=== PATIENT | female | born 2000 | race Caucasian/White ===

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

== ENCOUNTER 2021-09-17 17:14 | Emergency (ER) | payer OTHER, SELFPAY ==
[2021-09-17 17:20] VITALS: BP 144/106; PULSE 128; RESP 20; TEMP 36.3; O2SAT 100
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
[2021-09-17 17:51] VITALS: BP 122/78; PULSE 105; RESP 20; TEMP 36.6; O2SAT 99
== END 2021-09-17 17:52 | disposition home or self-care (01) ==
PROVIDERS: Emergency Provider Emergency Medicine; PCP Family Medicine
DX: K02.9 Dental caries, unspecified (principal); K04.7 Periapical abscess without sinus; H60.501 Unspecified acute noninfective otitis externa, right ear
CPT/HCPCS: 99283

== ENCOUNTER 2022-02-04 13:21 | Emergency (ER) | payer OTHER, SELFPAY ==
[2022-02-04 13:37] VITALS: BP 133/96; PULSE 115; RESP 20; TEMP 36.6; O2SAT 99
--- NOTE | 2022-02-04 13:41 | ED.SKABFB ---
HPI - Skin/Abscess/Foreign Bdy General Chief complaint: Skin/Abscess/Foreign Body Stated complaint: Right Ankle pain Source: patient Mode of arrival: ambulatory Limitations: no limitations History of Present Illness HPI narrative: this is a 21-year-old female that has a history of MRSA early easy having lesions in her lower extremities mainly the right lower extremity with an area of erythema with no drainage no fever chills. complaint: rash Onset (ago): day(s) Related Data Allergies Allergy/AdvReac Type Severity Reaction Status Date / Time poison jeffrey extract Allergy Severe Rash Verified 02/04/22 13:36 venom-honey bee Allergy Unknown Unknown Verified 02/04/22 13:36 Review of Systems Review of Systems: All systems reviewed & are unremarkable except as noted in HPI and below PMFSH Past Medical History Medical History Patient denies medical problems Exam Const: General: healthy appearing Nutritional Appearance: well nourished HENMT: Head: normal to inspection Face and sinus: normal facial exam Mouth: Yes Normal oral and palatal mucosa present Eyes: Conjunctivae: conjunctivae normal Neck: Neck: normal visual inspection, no lymphadenopathy and no meningeal signs Chest: Chest palpation & inspection: normal inspection of the chest Resp: Effort & Inspection: normal respiratory effort Auscultation: clear to auscultation bilaterally Cardio: Rate: regular rate Rhythm: regular rhythm GI: Auscultation: normal bowel sounds Skin: Wounds: wounds noted Other: Lower extremities with an area erythema Neuro: General: patient oriented x3 and moves all extremities Extrem: General: normal to inspection Course Course Emergency Course: will send antibiotics to patient's pharmacy. Vital Signs Vital signs: Vital Signs Temperature 36.6 C 02/04/22 13:37 Pulse Rate 115 H 02/04/22 13:37 Respiratory Rate 02/04/22 13:37 Blood Pressure 133/96 H 02/04/22 13:37 Pulse Oximetry 99 02/04/22 13:37 Oxygen Delivery Room Air 02/04/22 13:37 Temperature 36.6 C 02/04/22 13:37 Pulse Rate 115 H 02/04/22 13:37 Respiratory Rate 20 02/04/22 13:37 Blood Pressure 133/96 H 02/04/22 13:37 Pulse Oximetry 99 02/04/22 13:37 Oxygen Delivery Room Air 02/04/22 13:37 Critical Care Time Critical Care Time Critical Care Time: No Discharge Plan Discharge Clinical Impression: Abscess of skin or subcutaneous tissue Qualifiers: Site of cutaneous abscess: extremity Site of cutaneous abscess of extremity: lower extremity Laterality: right Qualified Code(s): L02.415 - Cutaneous abscess of right lower limb Cellulitis Qualifiers: Site of cellulitis: extremity Site of cellulitis of extremity: lower extremity Laterality: right Qualified Code(s): L03.115 - Cellulitis of right lower limb Patient Disposition: Home, Self-Care Condition: Stable Instructions: Antibiotic Form, Cellulitis (ED) Additional Instructions: Take medicine as prescribed and follow-up primary care physician if symptoms persist or worsen. Prescriptions: New amoxicillin-pot clavulanate [Augmentin] 500-125 mg tablet 1 tablet PO TID 10 Days Qty: 30 0RF mupirocin 2 % ointment 1 applic topical TID 7 Days Qty: 15 0RF Follow-up/Referrals: Tommy,Susan Sullivan MD [Primary Care Provider] - Time of Disposition: 13:46
== END 2022-02-04 13:52 | disposition home or self-care (01) ==
PROVIDERS: Emergency Provider Emergency Medicine; PCP Family Medicine
DX: L02.415 Cutaneous abscess of right lower limb (principal); L03.115 Cellulitis of right lower limb
CPT/HCPCS: 99283

== ENCOUNTER 2022-02-19 09:49 | Outpatient (CLI) | payer OTHER, SELFPAY ==
[2022-02-19 10:37] LABS: SPREG INTERNAL CONTROL Positive; Serum Qual hCG Negative
== END 2022-02-19 09:50 | disposition home or self-care (01) ==
LOC: CHSLAB 09:51
PROVIDERS: PCP Nurse Practitioner Family; Visit Provider Nurse Practitioner Family
DX: Z30.9 Encounter for contraceptive management, unspecified (principal)
CPT/HCPCS: 36415; 84703

== ENCOUNTER 2022-03-08 15:43 | Outpatient (NON) | payer OTHER, SELFPAY ==
[2022-03-08 16:21] LABS: Add Urine Microscopic? YES; Appearance Urine Cloudy (Clear); Bilirubin Urine Negative (Negative); Blood Urine Negative (Negative); Color Urine Light Yellow (Yellow); Glucose Urine UA Negative (Negative); Ketones Urine Negative (Negative); Leukocyte Esterase Ur 1+ LEU/UL (Negative); Nitrate Urine Positive (Negative); Protein Urine Negative (Negative); Specific Grav Ur >= 1.030 (1.010-1.020); Urobilinogen Urine 0.2 mg/dL (0.2-1.0)
[2022-03-08 16:33] LABS: Bacteria Urine 2+ /hpf; RBC Urine None seen /hpf (0-2); Squamous Epithelial Cell Urine Few /hpf (Few); WBC Urine 16-20 /hpf (0-3)
== END 2022-03-08 15:44 | disposition home or self-care (01) ==
LOC: CHSLAB 15:44
PROVIDERS: Visit Provider Nurse Practitioner Family
DX: R39.9 Unspecified symptoms and signs involving the genitourinary system (principal); Z72.51 High risk heterosexual behavior
CPT/HCPCS: 81001; 87077; 87086; 87088; 87186; 87491; 87591; 87661

== ENCOUNTER 2022-04-26 23:18 | Emergency (ER) | payer OTHER, SELFPAY ==
[2022-04-26 23:22] VITALS: TEMP 35.9
--- NOTE | 2022-04-26 23:25 | PC.NURSE ---
During initial nursing assessment pt states, I think i am just going to call my doctor in the morning. I don't need to be seen. This staff member reassured the pt that we can assess her. pt stated, I will just call my doctor. this staff member informed the patient to seek medical attention if she feel worse or if the light headiness get worse or does not go away. pt stated, I will. i am sure my doctor can see me quickly when I call in the morning. I don't was to take up a lot of time. I don't want to leave my car outside plus my car is having problems. I am just going to leave. pt left before this staff member was able to obtain vital signs. Pt denies suicidal thoughts. this staff member was able to complete a partial verbal assessment and was charted. pt left before being seen by ER physician.
== END 2022-04-26 23:41 | disposition left against medical advice (07) ==
PROVIDERS: Emergency Provider Emergency Medicine; PCP Nurse Practitioner Family
DX: R42 Dizziness and giddiness (principal)
CPT/HCPCS: 99199

== ENCOUNTER 2022-06-01 14:54 | Emergency (ER) | payer OTHER, SELFPAY ==
[2022-06-01 15:00] VITALS: BP 126/91; PULSE 120; RESP 20; TEMP 36.9; O2SAT 100
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
== END 2022-06-01 15:15 | disposition left against medical advice (07) ==
LOC: CHSED 15:48
PROVIDERS: Emergency Provider Emergency Medicine; PCP Family Medicine
DX: M54.2 Cervicalgia (principal); Y04.0XXA Assault by unarmed brawl or fight, initial encounter
CPT/HCPCS: 99281

== ENCOUNTER 2022-10-04 14:58 | Outpatient (NON) | payer OTHER, SELFPAY | END 2022-10-04 14:59 | disposition home or self-care (01) | PROVIDERS: PCP Nurse Practitioner Family; Visit Provider Nurse Practitioner Family | DX: L02.512 Cutaneous abscess of left hand (principal) | CPT/HCPCS: 87070; 87147; 87186; 87205 ==

== ENCOUNTER 2022-11-21 17:42 | Emergency (ER) | payer OTHER, SELFPAY ==
[2022-11-21 17:42] VITALS: BP 122/81; PULSE 86; RESP 16; O2SAT 100
[2022-11-21 17:53] LABS: Glucose Point of Care 105 mg/dl (65-105)
--- NOTE | 2022-11-21 17:59 | ED.GENADULT ---
HPI - General Adult General Chief complaint: Unspecified Stated complaint: episodes of nausea and dizziness Time Seen by Provider: 11/21/22 17:59 History of Present Illness HPI narrative: The patient is a 22-year-old woman with history of anxiety, depression, bipolar affective disorder. She smokes cigarettes and uses marijuana occasionally. She has a LINK card for food. [facility]. She has had a 2 day history of dizziness and feeling lightheaded. She has no nausea. She has not had any food today and does not want food to eat here in the ED. She does not want any water or soda to drink now. She wants no bloodwork to be done. She wants no IV's and no IV fluids. It is unclear what she really wants. She is not suicidal or homicidal. No delusions or hallucinations. She feels a bit better today in terms of the dizziness. She does not want to see a mental health social worker or medical case manager. She desires to be here the least amount of time in the ED. Related Data Allergies Allergy/AdvReac Type Severity Reaction Status Date / Time poison jeffrey extract Allergy Severe Rash Verified 11/21/22 17:51 venom-honey bee Allergy Unknown Unknown Verified 11/21/22 17:51 Review of Systems Review of Systems: All systems reviewed & are unremarkable except as noted in HPI and below Constitutional: Constitutional: Denies chills, Denies excessive sweating, Denies fatigue, Denies fever(s), Denies headache(s) and Denies weakness Eyes: Eyes: Denies change in vision and Denies photophobia ENT: Denies dysphagia, Reports dizziness, Denies headache(s), Denies lip swelling, Denies nasal congestion, Denies sore throat and Denies tongue swelling Cardiovascular: Cardiovascular: Denies chest pain, Denies syncope, Denies rapid heart rate and Denies dyspnea Respiratory: Respiratory: Denies cough, Denies dyspnea and Denies wheezing Gastrointestinal: Gastrointestinal: Denies abdominal pain, Denies constipation, Denies dysphagia, Denies diarrhea, Denies nausea and Denies vomiting Genitourinary: Genitourinary: Denies hematuria, Denies urinary frequency, Denies dysuria and Denies urinary urgency Musculoskeletal: Musculoskeletal: Denies back pain, Denies myalgias, Denies arthralgias, Denies joint swelling and Denies numbness Integumentary/Breasts: Skin/Breast: Denies pruritus, Denies erythema and Denies rash Neurologic: Denies confusion, Denies dizziness, Denies syncope, Denies headache(s), Denies focal weakness, Denies numbness and Denies weakness Psychiatric: Psychiatric: Denies anxiety and Denies confusion Endocrine: Endocrine: Denies excessive sweating and Denies fatigue Hematologic/Lymphatic: Hematologic/Lymphatic: Denies easy bleeding and Denies easy bruising Allergic/Immunologic: Allergic/Immunologic: Denies lip swelling, Denies tongue swelling and Denies wheezing PMFSH Past Medical History Medical History MRSA (methicillin resistant staph aureus) culture positive Patient denies medical problems Scoliosis deformity of spine Surgical History Surgical History H/O oral surgery History of placement of ear tubes History of tonsillectomy Social History Social History Years smoked: 2 Smoking status: Current every day smoker Alcohol intake: never Substance use: never Substance use type: does not use Living arrangements: alone Exam Const: General: healthy appearing, no acute distress, alert and well nourished; No confusion Nutritional Appearance: well nourished Orientation/consciousness: patient oriented x3 and No confusion Limitations: no limitations HENMT: Head: normal to inspection Ears: external ears normal Face/Nose/Sinus: normal facial exam Face and sinus: normal facial exam Mouth: Yes moist mucous membranes Throat: posterior oropharynx normal Eyes: Conjunctiv
== END 2022-11-21 18:20 | disposition home or self-care (01) ==
PROVIDERS: Emergency Medicine; Emergency Provider Emergency Medicine; PCP Nurse Practitioner Family
DX: R42 Dizziness and giddiness (principal); F31.9 Bipolar disorder, unspecified; F17.210 Nicotine dependence, cigarettes, uncomplicated
CPT/HCPCS: 82948; 99282

== ENCOUNTER 2022-12-03 19:06 | Emergency (ER) | payer OTHER, SELFPAY ==
[2022-12-03 19:08] VITALS: BP 98/65; PULSE 97; RESP 18; TEMP 37; O2SAT 99
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
--- NOTE | 2022-12-03 19:25 | PC.NURSE ---
After Dr. Austin finished in pt room, pt and visitor abruptly walked out of the department to the exit. Pt appeared agitated and was walking hastily towards to exit. Pt did not say anything to staff during her exit. 12/03/22 @1916
== END 2022-12-03 19:16 | disposition left against medical advice (07) ==
PROVIDERS: Emergency Provider Emergency Medicine; PCP Nurse Practitioner Family
DX: H92.01 Otalgia, right ear (principal); F17.210 Nicotine dependence, cigarettes, uncomplicated; Y09 Assault by unspecified means
CPT/HCPCS: 99281

== ENCOUNTER 2023-05-11 11:45 | Outpatient (NON) | payer OTHER, SELFPAY | END 2023-05-11 11:46 | disposition home or self-care (01) | LOC: CHSLAB 11:47 | PROVIDERS: Visit Provider Nurse Practitioner Family | DX: L28.2 Other prurigo (principal) | CPT/HCPCS: 87070; 87075; 87205 ==

== ENCOUNTER 2023-07-06 23:08 | Emergency (ER) | payer OTHER, SELFPAY ==
--- NOTE | 2023-07-06 23:13 | ED.ABDPAIN ---
HPI - Abdominal Pain General Chief Complaint: Abdominal Pain Stated Complaint: sob, abdominal cramping Source: patient Mode of arrival: ambulatory Limitations: no limitations History of Present Illness HPI narrative: 23-year-old female with no significant past medical history who is currently homeless presents to the ER with a 1 hour history of -- anxiety -- shortness of breath. No cough or sputum production. -- abdominal cramps. No fever or chills. No nausea/ vomiting. Patient is on contraceptive injectable which is up-to-date. No history of drug abuse. MD elicited complaint: abdominal pain Pertinent past history: constipation Onset (ago): hour(s) ( 1 hour) Pain Consistency: intermittent Location: diffuse Severity: mild Quality: aching Radiation: none Migration to: no migration Exacerbating factors: nothing Relieving factors: nothing Related Data Allergies Allergy/AdvReac Type Severity Reaction Status Date / Time poison jeffrey extract Allergy Severe Rash Verified 05/12/23 10:57 Review of Systems Review of Systems: All systems reviewed & are unremarkable except as noted in HPI and below Constitutional: Constitutional: Reports as per HPI and Reports no additional constitutional complaints Eyes: Eyes: Reports as per HPI and Reports no additional eye complaints ENT: Reports system reviewed and no additional complaints, except as documented and Reports as per HPI Cardiovascular: Cardiovascular: Reports as per HPI and Reports no additional cardiovascular complaints Respiratory: Respiratory: Reports as per HPI, Reports no additional respiratory complaints and Reports dyspnea Gastrointestinal: Gastrointestinal: Reports as per HPI and Reports no additional gastrointestinal complaints Genitourinary: Genitourinary: Reports no additional female genitourinary complaints Musculoskeletal: Musculoskeletal: Reports no additional musculoskeletal complaints and Reports as per HPI Integumentary/Breasts: Skin/Breast: Reports system reviewed and no additional complaints, except as docu and Reports as per HPI Neurologic: Reports system reviewed and no additional complaints, except as documented and Reports as per HPI Psychiatric: Psychiatric: Reports no additional psychiatric complaints and Reports as per HPI Endocrine: Endocrine: Reports no additional endocrine complaints and Reports as per HPI Hematologic/Lymphatic: Hematologic/Lymphatic: Reports no additional hematologic/lymphatic complaints and Reports as per HPI Allergic/Immunologic: Allergic/Immunologic: Reports no additional allergic/immunologic complaints and Reports as per HPI [facility] Past Medical History Medical History MRSA (methicillin resistant staph aureus) culture positive Patient denies medical problems Scoliosis deformity of spine Surgical History Surgical History H/O oral surgery History of placement of ear tubes History of tonsillectomy Social History Social History Years smoked: 2 Smoking status: Current every day smoker Alcohol intake: never Substance use: never Substance use type: does not use Living arrangements: alone Exam Narrative: patient is hemodynamically stable. Initial tachycardia has resolved. Const: General: healthy appearing and no acute distress Orientation/consciousness: patient oriented x3 Limitations: no limitations HENMT: Head: normal to inspection Ears: external ears normal Face/Nose/Sinus: Normal external nose present Face and sinus: normal facial exam Mouth: Yes Normal oral and palatal mucosa present Throat: posterior oropharynx normal Eyes: Conjunctivae: conjunctivae normal Pupils: Equal, round and reactive pupils present EOM: EOMs intact bilaterally Direct Ophthalmoscopy: no photophobia Neck: Neck: normal visual inspection, no
[2023-07-06 23:16] VITALS: BP 119/75; PULSE 108; RESP 18; TEMP 36.8; O2SAT 100
== END 2023-07-06 23:55 | disposition home or self-care (01) ==
LOC: CHSED 23:44
PROVIDERS: Emergency Provider Internal Medicine Critical Care Medicine; PCP Nurse Practitioner Family
DX: F41.9 Anxiety disorder, unspecified (principal); F17.210 Nicotine dependence, cigarettes, uncomplicated
CPT/HCPCS: 99281

== ENCOUNTER 2023-11-25 19:09 | Emergency (ER) | payer OTHER, SELFPAY ==
[2023-11-25 19:17] VITALS: BP 123/92; PULSE 110; RESP 18; TEMP 36.8; O2SAT 100
--- NOTE | 2023-11-25 19:51 | ED.DENTAL ---
HPI - Dental/Oral General Chief complaint: Dental/Oral Stated complaint: tooth pain Source: patient Mode of arrival: ambulatory Limitations: no limitations History of Present Illness HPI Narrative: Patient is a 23-year-old female with left upper jaw pain and dental issues. She missed her dental appointment and is trying to get back into the dentist. She is swollen on the left upper cheek. patient did not want anything for pain and only wants antibiotics. MD Complaint: tooth pain Location: Tooth # ( 14 15 16) Onset (ago): week(s) (1) Duration: constant Severity: moderate Severity scale (1-10): 5 Relieving factors: NSAIDs Exacerbating factors: chewing, cold, heat and drinking fluids Context: history of dental caries and poor dental care Associated symptoms: gum swelling Treatment prior to arrival: oral analgesic Related Data Allergies Allergy/AdvReac Type Severity Reaction Status Date / Time poison jeffrey extract Allergy Severe Rash Verified 11/25/23 19:28 Review of Systems Review of Systems: All systems reviewed & are unremarkable except as noted in HPI and below Constitutional: Constitutional: Reports no additional constitutional complaints Eyes: Eyes: Reports no additional eye complaints ENT: Reports system reviewed and no additional complaints, except as documented Cardiovascular: Cardiovascular: Reports no additional cardiovascular complaints Respiratory: Respiratory: Reports no additional respiratory complaints Gastrointestinal: Gastrointestinal: Reports no additional gastrointestinal complaints Genitourinary: Genitourinary: Reports no additional female genitourinary complaints Musculoskeletal: Musculoskeletal: Reports no additional musculoskeletal complaints Integumentary/Breasts: Skin/Breast: Reports system reviewed and no additional complaints, except as docu Neurologic: Reports system reviewed and no additional complaints, except as documented Psychiatric: Psychiatric: Reports no additional psychiatric complaints Endocrine: Endocrine: Reports no additional endocrine complaints Hematologic/Lymphatic: Hematologic/Lymphatic: Reports no additional hematologic/lymphatic complaints Allergic/Immunologic: Allergic/Immunologic: Reports no additional allergic/immunologic complaints PMFSH Past Medical History Medical History MRSA (methicillin resistant staph aureus) culture positive Patient denies medical problems Scoliosis deformity of spine Surgical History Surgical History H/O oral surgery History of placement of ear tubes History of tonsillectomy Social History Social History Years smoked: 2 Smoking status: Current every day smoker Alcohol intake: never Substance use: never Substance use type: does not use Living arrangements: alone Exam Const: General: healthy appearing Nutritional Appearance: well nourished Orientation/consciousness: patient oriented x3 HENMT: Head: normal to inspection Ears: external ears normal Face/Nose/Sinus: Normal external nose present Other: Dental decay severely in the left upper jaw of tooth 14, 15, 16 with gingivitis Eyes: Conjunctivae: conjunctivae normal Pupils: Equal, round and reactive pupils present EOM: EOMs intact bilaterally Neck: Neck: normal visual inspection Chest: Chest palpation & inspection: normal inspection of the chest Resp: Effort & Inspection: normal respiratory effort and not labored Auscultation: clear to auscultation bilaterally Cardio: Rate: regular rate Rhythm: regular rhythm Heart sounds: no murmurs GI: Inspection: non-distended Auscultation: normal bowel sounds : General: Yes bladder normal to palpation Back/Spine/Pelvis: Back: no CVA tenderness Skin: General skin exam: normal color Rashes: no rashes Wounds: no wounds Neuro: G
[2023-11-25] MEDS: CLINDAMYCIN HCL 150 MG CAP 300 MG PO (20:16)
== END 2023-11-25 20:20 | disposition home or self-care (01) ==
PROVIDERS: Emergency Provider Emergency Medicine
DX: R68.84 Jaw pain (principal)
CPT/HCPCS: 99283; A9270

== ENCOUNTER 2024-01-12 14:14 | Outpatient (CLI) | payer OTHER, SELFPAY ==
--- NOTE | ~2024-01-12 | XR_ITS ---
Cervical Spine: AP, lateral, open-mouth views Clinical History: Pain Findings: There is straightening of the normal cervical lordosis. The vertebral bodies and posterior elements appear intact. The intervertebral disc spaces are well maintained. Pre-vertebral soft tiss ues are unremarkable. Impression: Straightening of the normal cervical lordosis, otherwise essentially unremarkable exam. Reviewed, dictated and finalized at location . Impression: Straightening of the normal cervical lordosis, otherwise essentially unremarkab le exam.
== END 2024-01-12 14:15 | disposition home or self-care (01) ==
PROVIDERS: PCP Family Medicine; Visit Provider Family Medicine
DX: M53.82 Other specified dorsopathies, cervical region (principal); S19.9XXS Unspecified injury of neck, sequela
CPT/HCPCS: 72040

== ENCOUNTER 2024-01-18 15:01 | Outpatient (CLI) | payer OTHER, SELFPAY ==
[2024-01-18 16:11] LABS: Alanine Aminotransferase 22 U/L (14-59); Albumin Level 3.8 g/dL (3.4-5.0); Alkaline Phosphatase 62 U/L (46-116); Anion Gap 10 mmol/L (4-12); Aspartate Amino Transferase 16 U/L (15-37); Bilirubin,Total 0.3 mg/dL (0.00-1.00); Blood Urea Nitrogen 12 mg/dL (7-18); Calcium 8.8 mg/dL (8.5-10.1); Carbon Dioxide 24 mmol/L (21-32); Chloride 106 mmol/L (98-108); Estimated Glomerular Filt Rate > 60; Glucose 87 mg/dL (70-99); Magnesium 2.1 mg/dL (1.8-2.4); Osmolality Calculated 288 mOsm/kg (285-295); Potassium 3.9 mmol/L (3.5-5.1); Sodium 140 mmol/L (136-145); Thyroid Stimulating Hormone 1.02 uIU/mL (0.36-3.74); Total Protein 6.7 g/dL (6.4-8.2); Vitamin B12 453 pg/mL (193-986)
[2024-01-18 17:35] LABS: Basophils Absolute Auto 0.05 K/mm3 (0.00-0.10); Basophils Percent Auto 0.8 % (0.0-1.0); Eosinophils Absolute Auto 0.37 K/mm3 (0.02-0.50); Eosinophils Percent Auto 6.2 % (1.0-6.0); Hematocrit 42.2 % (35.0-49.0); Hemoglobin 14.1 g/dL (12.0-15.0); Immature Granulocyte Absolute 0.01 K/mm3 (0.00-0.00); Immature Granulocyte Percent A 0.2 % (0.0-0.0); Lymphocytes Absolute Auto 2.02 K/mm3 (1.10-4.50); Lymphocytes Percent Auto 34.1 % (18.0-42.0); Mean Corpuscular HGB Conc 33.4 g/dL (32-36); Mean Corpuscular Hemoglobin 29.7 pg (27.0-31.0); Mean Corpuscular Volume 88.8 fL (78.0-102.0); Monocytes Absolute Auto 0.52 K/mm3 (0.10-0.90); Monocytes Percent Auto 8.8 % (2.0-11.0); Neutrophils Absolute Auto 2.96 K/mm3 (1.70-7.20); Neutrophils Percent Auto 49.9 % (50.0-70.0); Platelet Count Result 263 K/mm3 (150-420); Red Blood Count 4.75 M/mm3 (4.20-5.40); Red Cell Distribution Width 12.3 % (11.6-14.4); White Blood Count 5.9 K/mm3 (4.8-10.8)
== END 2024-01-18 15:02 | disposition home or self-care (01) ==
PROVIDERS: PCP Family Medicine; Visit Provider Registered Nurse
DX: R20.0 Anesthesia of skin (principal); R20.2 Paresthesia of skin; Z87.39 Personal history of other diseases of the musculoskeletal system and connective tissue
CPT/HCPCS: 36415; 80053; 82607; 83735; 84443; 85025

== ENCOUNTER 2024-11-08 11:38 | Outpatient (CLI) | payer OTHER, SELFPAY ==
[2024-11-08 11:59] LABS: Basophils Absolute Auto 0.05 K/mm3 (0.00-0.10); Basophils Percent Auto 0.6 % (0.0-1.0); Eosinophils Percent Auto 6.1 % (1.0-6.0); Hematocrit 46.1 % (35.0-49.0); Immature Granulocyte Absolute 0.03 K/mm3 (0.00-0.00); Immature Granulocyte Percent A 0.4 % (0.0-0.0); Lymphocytes Absolute Auto 1.35 K/mm3 (1.10-4.50); Lymphocytes Percent Auto 16.4 % (18.0-42.0); Mean Corpuscular HGB Conc 32.5 g/dL (32-36); Mean Corpuscular Hemoglobin 29.1 pg (27.0-31.0); Mean Corpuscular Volume 89.3 fL (78.0-102.0); Mean Platelet Volume 10.1 fl (9.2-11.8); Monocytes Absolute Auto 1.04 K/mm3 (0.10-0.90); Monocytes Percent Auto 12.7 % (2.0-11.0); Neutrophils Absolute Auto 5.24 K/mm3 (1.70-7.20); Neutrophils Percent Auto 63.8 % (50.0-70.0); Platelet Count Result 263 K/mm3 (150-420); Red Blood Count 5.16 M/mm3 (4.20-5.40); Red Cell Distribution Width 12.3 % (11.6-14.4); White Blood Count 8.2 K/mm3 (4.8-10.8)
[2024-11-08 12:25] LABS: HIV 1 P24 AG Negative (Negative); HIV 1/2 AB Negative (Negative)
--- OUTSIDE RECORDS SUMMARY | 2024-11-08 12:27 | XMS_ITS | Clinical Summary ---
Author Organization [facility] [place] Address [address] [place] [address] Care Team Providers Care Maintenance Repairer Name Role Phone Chelsie Kang MD Primary Care Provider [phone] Allergies No known active allergies Medications loratadine (CLARITIN) 10 MG tablet Take 1 tablet (10 mg total) by mouth daily. 10 tablet 07/30/2024 Active Active Problems Problem Noted Date Diagnosed Date De Quervain's tenosynovitis, left 03/09/2021 Carpal tunnel syndrome of right wrist 03/09/2021 Carpal tunnel syndrome of left wrist 03/09/2021 Family History Relation Status Comments Father Alive Mother Alive Social History Tobacco Use Types Packs/Day Years Used Date Smoking Tobacco: Every Day Cigarettes Smokeless Tobacco: Never Alcohol Use Standard Drinks/Week Comments Not Currently 0 (1 standard drink = 0.6 oz pur e alcohol) Comments Unknown Sex and Gender Information Value Date Recorded Sex Assigned at Female 11/05/2024 1:33 PM CDT Legal Sex Female 11:17 AM CDT Gender Identity Not on file Sexual Orientation Not on file Last Filed Vital Signs Vital Sign Reading Time Taken Comments Blood Pressure 120/66 07/30/2024 9:54 AM [facility]ER Pulse 80 07/30/2024 9:54 AM MULE RIDER Temperature 37.1 C (98.8 F) 07/30/2024 9:54 AM [facility]LE RIDER Respiratory Rate 20 07/30/2024 9:54 AM MULE RIDER Oxygen Saturation 98% 07/30/2024 9:54 AM [facility]ER Inhaled Oxygen Concentration - - Weight 68 kg (150 lb) 07/30/2024 9:54 AM [facility]LE R[facility] Height 167.6 cm (5' 6 ) 07/30/2024 9:54 AM [facility]LE RIDER Body Mass Index 24.21 07/30/2024 9:54 AM MULE RIDER Plan of Treatment Upcoming Encounters Date Type Department Care Team (Late st Contact Info) Description 11/16/2024 4:00 PM CDT Appointment [facility] [address] [place] [address] Chelsie Kang MD [address] [place] [phone] Health Maintenance Due Date Last Done Comments Cervical Cancer Screening Pa p Smear (Age 21 to 29) Every 3 Years 2001 Cervical Cancer Screening 2001 Annual Physical 2004 Pneumococcal Vaccine: Pediatrics (0 to 5 Years) and At-Risk Patients (6 to 64 Years) (1 of 2 - PCV) 2007 Meningococcal B Vaccine (1 o f 2 - Standard) 2017 Hepatitis C 2019 DTaP, Tdap and Td Vaccines ( 1 - Tdap) 2020 Hepatitis B Vaccines (1 of 3 - 19+ 3-dose series) 2020 COVID-19 Vaccine (1 - 2023-2 5 season) 2024 HPV Vaccines Completed 07/13/2016, 06/18/2013, 04/09/2013 Meningococcal Vaccine Completed 09/16/2017 , 06/18/2013 RSV Immunizations Under 20 Months Aged Out No longer eligible b ased on patient's age to complete this topic Insurance AET Care Teams Maintenance Repairer Relationship Specialty Start Date End Date Chelsie Kang MD [address] [place] [phone] PCP - General FAMILY PRACTICE 04/19/24
[2024-11-08 12:50] LABS: Alanine Aminotransferase 36 U/L (14-59); Albumin Level 3.9 g/dL (3.4-5.0); Alkaline Phosphatase 102 U/L (46-116); Anion Gap 7 mmol/L (4-12); Aspartate Amino Transferase 19 U/L (15-37); Bilirubin,Total 0.4 mg/dL (0.00-1.00); Blood Urea Nitrogen 13 mg/dL (7-18); Calcium 9.4 mg/dL (8.5-10.1); Carbon Dioxide 28 mmol/L (21-32); Chloride 105 mmol/L (98-108); Estimated Glomerular Filt Rate > 60; Folic Acid > 20.0 ng/mL (8.6->20); Glucose 85 mg/dL (70-99); Osmolality Calculated 289 mOsm/kg (285-295); Potassium 4.1 mmol/L (3.5-5.1); Sodium 140 mmol/L (136-145); Thyroid Stimulating Hormone 0.99 uIU/mL (0.36-3.74); Total Protein 7.4 g/dL (6.4-8.2); Vitamin B12 647 pg/mL (193-986)
[2024-11-09 08:57] LABS: Hepatitis B Surface Antigen NON-REACTIVE (NON-REACTIVE); Hepatitis C Virus Antibody NON-REACTIVE (NON-REACTIVE); Vitamin D 25 Hydroxy 21 ng/mL (30-100)
[2024-11-09 11:49] LABS: Bacterial Vaginosis POSITIVE (NEGATIVE)
[2024-11-12 12:38] LABS: RPR Screen NON-REACTIVE (NON-REACTIVE)
== END 2024-11-08 11:39 | disposition home or self-care (01) ==
LOC: CHSLAB 11:40
PROVIDERS: PCP Family Medicine; Visit Provider Family Medicine
DX: F32.1 Major depressive disorder, single episode, moderate (principal); Z11.3 Encounter for screening for infections with a predominantly sexual mode of transmission
CPT/HCPCS: 36415; 80053; 81513; 82306; 82607; 82746; 84443; 85025; 86592; 86803; 87340; 87517; 87806